=== PATIENT | female | born 1960 | race Caucasian/White ===

== ENCOUNTER 2024-04-07 09:47 | Emergency (ER) | payer MEDICAID ==
[~2024-04-07] VITALS: Ht 165.1 cm; Wt 84.1 kg
[2024-04-07 09:53] VITALS: BP 123/74; PULSE 92; O2SAT 96
[2024-04-07 10:28] VITALS: RESP 16
[2024-04-07] MEDS: HYDROcodone/acetaminophen 10/325mg tab PO ONE (10:28)
[2024-04-07] MEDS ORDERED: HYDR-3973 PO (10:33)
[2024-04-07 10:46] VITALS: TEMP 98.5
== END 2024-04-07 10:47 | disposition home or self-care (01) ==
LOC: ER 09:48
DX: S82.831A Other fracture of upper and lower end of right fibula, initial encounter for closed fracture (principal); Z88.1 Allergy status to other antibiotic agents; Z88.8 Allergy status to other drugs, medicaments and biological substances; Z79.899 Other long term (current) drug therapy; W19.XXXA Unspecified fall, initial encounter; Y93.89 Activity, other specified; Y92.89 Other specified places as the place of occurrence of the external cause; Y99.8 Other external cause status
CPT/HCPCS: 73610; 99283